=== PATIENT | male | born 1950 | race Caucasian/White ===

== ENCOUNTER 2018-07-08 05:32 | Inpatient (IN) | payer MEDICARE, OTHER ==
[~2018-07-08] VITALS: Ht 198.1 cm; Wt 155.1 kg
--- NOTE | 2018-07-08 05:50 | NUR ---
RT paged to bedside for SOB. RT states they will come back when there are orders. Dr. Azul called to bedside to evaluate patient for RT treatment and states he will place orders.
[2018-07-08] MEDS ORDERED: methylPREDNISolone sod succ 125mg/2ml vial IV ONE (06:00)
[2018-07-08] MEDS ORDERED: ipratropium/albuterol 3ml nebule NEB ONE (06:00)
[2018-07-08] MEDS ORDERED: albuterol 2.5 MG/3 ML nebule NEB ONE (06:00)
[2018-07-08 06:05] LABS: BASOPHILS % (AUTO) 0.6 % (0-1); EOSINOPHILS # (AUTO) 0.1 X10'3 (0-0.9); EOSINOPHILS % (AUTO) 0.7 % (0-6); HEMATOCRIT 41.1 % (42.0-52.0); HEMOGLOBIN 13.7 g/dl (14.0-17.9); LYMPHOCYTES # (AUTO) 1.1 X10'3 (1.1-4.8); LYMPHOCYTES % (AUTO) 12.8 % (21-51); MEAN CORPUSCULAR HEMOGLOBIN 27.9 PG (27.0-31.0); MEAN CORPUSCULAR HGB CONC 33.3 % (33.0-36.5); MEAN CORPUSCULAR VOLUME 83.9 FL (78-98); MEAN PLATELET VOLUME 6.7 FL (7.4-10.4); MONOCYTES # (AUTO) 0.6 X10'3 (0-0.9); MONOCYTES % (AUTO) 6.7 % (2-12); NEUTROPHILS # (AUTO) 6.7 X10'3 (1.8-7.7); NEUTROPHILS % (AUTO) 79.2 % (42-75); PLATELET COUNT 194 X10'3 (140-440); RED CELL DISTRIBUTION WIDTH 15.9 % (11.5-14.5); WHITE BLOOD COUNT 8.4 X10'3 (4.5-11.0)
--- NOTE | 2018-07-08 06:14 | NUR ---
RT REPAGED [phone]
[2018-07-08 06:24] LABS: PARTIAL THROMBOPLASTIN TIME 42 SECONDS (22-32); PROTHROMBIN TIME 19.6 SECONDS (9.0-12.0)
[2018-07-08 06:31] LABS: ALANINE AMINOTRANSFERASE 48 U/L (12-78); ALBUMIN 3.6 G/DL (3.4-5.0); ALBUMIN/GLOBULIN RATIO 1.1 (1.1-1.5); ALKALINE PHOSPHATASE 84 IU/L (46-116); ANION GAP 14 (8-16); ASPARTATE AMINO TRANSFERASE 108 U/L (10-37); BILIRUBIN,TOTAL 0.7 MG/DL (0.1-1.0); BLOOD UREA NITROGEN 26 MG/DL (7-18); BUN/CREATININE RATIO 16.9 (5.4-32.0); CALCIUM 8.7 MG/DL (8.5-10.1); CHLORIDE 100 MMOL/L (99-107); CREATININE 1.54 MG/DL (0.60-1.10); GLUCOSE 191 MG/DL (70-104); MAGNESIUM 1.8 MG/DL (1.5-2.4); SODIUM 142 MMOL/L (135-145); TOTAL CARBON DIOXIDE 28.1 MMOL/L (24-32); TOTAL PROTEIN 6.9 G/DL (6.4-8.2); eGFR 45 ML/MIN
--- NOTE | 2018-07-08 06:31 | NUR ---
THIRD PAGE FOR RT 0630; OCCURS REPORT STARTED PER DR. MAGDALENO.
[2018-07-08 06:39] LABS: POTASSIUM 2.8 MMOL/L (3.5-5.1)
--- NOTE | 2018-07-08 06:41 | NUR ---
RT ARRIVED 0640
[2018-07-08] MEDS ORDERED: levoFLOXACIN-Levaquin 750MG/D5 150 ML IV ONE (07:10)
--- NOTE | 2018-07-08 07:22 | NUR ---
HOSPITALIST PAGED [phone]
[2018-07-08] MEDS: potassium 10mEq/100ml NS w/LIDOcaine (10mg/bag) IV SCH ×2 (07:39→09:06)
--- NOTE | 2018-07-08 08:17 | NUR ---
HOSPITALIST CALLED [phone]
[2018-07-08] MEDS ORDERED: INSU100V30 SQ (08:37)
[2018-07-08] MEDS ORDERED: GABA-532 PO (08:37)
[2018-07-08] MEDS ORDERED: LANTUS SQ (08:37)
[2018-07-08] MEDS ORDERED: CHOL400T32 PO (08:47)
[2018-07-08] MEDS ORDERED: COU5T PO (08:47)
[2018-07-08] MEDS ORDERED: LOSA25TA96 PO (08:47)
[2018-07-08] MEDS ORDERED: FURO-150 PO (08:47)
[2018-07-08] MEDS ORDERED: ATOR80TA PO (08:47)
[2018-07-08] MEDS ORDERED: ASPI81TA52 PO (08:47)
[2018-07-08] MEDS ORDERED: TRAZ-218 PO (08:47)
[2018-07-08] MEDS ORDERED: DOCU-20 PO (08:47)
[2018-07-08] MEDS ORDERED: AMLO-93 PO (08:47)
[2018-07-08] MEDS ORDERED: ALFU10TA10 PO (08:47)
[2018-07-08] MEDS ORDERED: EPLE25TA4 PO (08:47)
[2018-07-08] MEDS ORDERED: glucagon, human recombinant 1mg kit SUBCUT PRN (09:00)
[2018-07-08] MEDS ORDERED: albuterol 2.5 MG/3 ML nebule NEB PRN (09:00)
[2018-07-08] MEDS ORDERED: acetaminophen 325mg tablet PO PRN ×2 (09:00)
[2018-07-08] MEDS ORDERED: magnesium 4gm in 100ml NS 100 ML IV PRN (09:00)
[2018-07-08] MEDS ORDERED: potassium Cl 20 mEq SR tablet PO PRN ×2 (09:00)
[2018-07-08] MEDS ORDERED: MESSAGE TO PHARMACY PO ONE (09:00)
[2018-07-08] MEDS ORDERED: magnesium Cl slow-release 64mg tablet PO PRN (09:00)
[2018-07-08] MEDS ORDERED: potassium Cl 40MEQ/NS 500ml 500 ML IV PRN ×2 (09:00)
[2018-07-08] MEDS ORDERED: dextrose 50%-water 50ml dispensing syringe IV PRN ×2 (09:00)
[2018-07-08] MEDS ORDERED: ondansetron/PF 4mg/2ml inj IV PRN (09:00)
[2018-07-08] MEDS ORDERED: mag hydrox/Alum hydrox/simeth 30ml oral suspension PO PRN (09:00)
[2018-07-08] MEDS ORDERED: HYDROcodone/acetaminophen 5mg/325mg tablet PO PRN (09:00)
[2018-07-08] MEDS ORDERED: dextrose ORAL solution 15 GM/59 ML bottle PO PRN ×2 (09:00)
[2018-07-08] MEDS ORDERED: magnesium hydroxide 30ml (MOM) UD suspension PO PRN (09:00)
[2018-07-08] MEDS: normal saline 1000ml 1,000 ML IV SCH ×2 (09:20→20:50)
[2018-07-08] MEDS: methylPREDNISolone sod succ 125mg/2ml vial IV SCH ×2 (13:04→20:38)
--- NOTE | 2018-07-08 15:51 | NUR ---
receiving report from Stoney HENRY
[2018-07-08 17:45] VITALS: BP 157/72
--- NOTE | 2018-07-08 18:48 | NUR ---
Received report from primary care nurse Silvia HENRY and student RN Lary. Assumed patient care. Patient is awake and alert on 3L NC. In no apparent distress watching television. Call light and items of frequent use within reach. Will continue to monitor for changes.
[2018-07-08 19:00] VITALS: BP 148/70
[2018-07-08] MEDS ORDERED: insulin glargine (Lantus) pen - multi-dose SQ SCH ×2 (20:00→21:00)
[2018-07-08] MEDS ORDERED: furosemide 20MG tablet PO SCH (20:00)
[2018-07-08] MEDS: EPLERENONE 50 MG PO SCH (20:35)
[2018-07-08] MEDS: gabapentin 300mg capsule PO SCH (20:36)
[2018-07-08] MEDS ORDERED: traZODone 50mg tablet PO SCH (21:00)
[2018-07-08] MEDS ORDERED: temazepam 15mg capsule PO PRN (21:00)
[2018-07-08] MEDS ORDERED: tamsulosin 0.4mg capsule PO SCH (21:00)
[2018-07-08] MEDS: insulin Lispro (HumaLOG) vial - multi-dose SQ SCH (21:54)
[2018-07-08] MEDS ORDERED: furosemide 10 MG/1 ML 10ml inj IV ONE (22:15)
[2018-07-08 23:00] VITALS: BP 106/73
[2018-07-09 03:00] VITALS: BP 161/72
[2018-07-09 06:00] VITALS: BP 153/84
--- NOTE | 2018-07-09 06:09 | NUR ---
Reported off to Mechelle RN and Renata RN. Patient is awake and alert on room air getting his labs drawn. In no apparent distress. Call light and items of frequent use within reach.
[2018-07-09 06:44] LABS: BASOPHILS % (AUTO) 0.1 % (0-1); EOSINOPHILS % (AUTO) 0.9 % (0-6); HEMATOCRIT 37.9 % (42.0-52.0); HEMOGLOBIN 12.5 g/dl (14.0-17.9); LYMPHOCYTES # (AUTO) 0.6 X10'3 (1.1-4.8); LYMPHOCYTES % (AUTO) 10.8 % (21-51); MEAN CORPUSCULAR HEMOGLOBIN 27.8 PG (27.0-31.0); MEAN CORPUSCULAR HGB CONC 33.1 % (33.0-36.5); MEAN CORPUSCULAR VOLUME 83.9 FL (78-98); MEAN PLATELET VOLUME 6.9 FL (7.4-10.4); MONOCYTES # (AUTO) 0.3 X10'3 (0-0.9); MONOCYTES % (AUTO) 5.6 % (2-12); NEUTROPHILS # (AUTO) 4.3 X10'3 (1.8-7.7); NEUTROPHILS % (AUTO) 82.6 % (42-75); PLATELET COUNT 179 X10'3 (140-440); RED BLOOD COUNT 4.52 X10'6 (4.70-6.10); RED CELL DISTRIBUTION WIDTH 16.4 % (11.5-14.5); WHITE BLOOD COUNT 5.3 X10'3 (4.5-11.0)
--- NOTE | 2018-07-09 06:47 | NUR ---
Patient in room PCU 3018B. I have received report from YE and had the opportunity to ask questions and assume patient care. PT AWAKE AND ORIENTED WITH NO SIGNS OF DISTRESS, WILL CONTINUE TO MONITOR. BED LOCKED AND LOW, CALL LIGHT WITHIN REACH.
[2018-07-09 07:11] LABS: PROTHROMBIN TIME 28.7 SECONDS (9.0-12.0)
--- NOTE | 2018-07-09 07:16 | NUR ---
Paged Dr. Phelps PAGER ID: [phone] MESSAGE: RAVI Phelps, Re: Mikel Cuellar in [id number]. Blood Glucose was 422 this am, raised him to level 3 per protocol. Pt has levaquin in D5W. please advise, Renata ext [phone]
[2018-07-09] MEDS: gabapentin 300mg capsule PO SCH (07:58)
[2018-07-09 08:00] LABS: ALBUMIN 3.4 G/DL (3.4-5.0); BLOOD UREA NITROGEN 33 MG/DL (7-18); BUN/CREATININE RATIO 21.2 (5.4-32.0); CALCIUM 8.4 MG/DL (8.5-10.1); CREATININE 1.56 MG/DL (0.60-1.10); GLUCOSE 422 MG/DL (70-104); MAGNESIUM 1.9 MG/DL (1.5-2.4); TOTAL CARBON DIOXIDE 28.9 MMOL/L (24-32); eGFR 44 ML/MIN
[2018-07-09] MEDS ORDERED: docusate sod 100mg capsule PO SCH (08:00)
[2018-07-09] MEDS ORDERED: enoxaparin 40mg/0.4ml syringe SUBCUT SCH (08:00)
[2018-07-09] MEDS ORDERED: vitamin D (cholecalciferol) 1,000 unit tablet PO SCH (08:00)
[2018-07-09] MEDS ORDERED: amLODIPine 5mg tablet PO SCH (08:00)
[2018-07-09] MEDS ORDERED: K and/or MAG REPLACEMENT MC SCH (08:00)
[2018-07-09] MEDS ORDERED: levoFLOXACIN-Levaquin 500mg/D5 100 ML IV SCH (08:00)
[2018-07-09] MEDS ORDERED: furosemide 40mg/4ml inj IV SCH (08:00)
[2018-07-09] MEDS ORDERED: atorvastatin 20mg tablet PO SCH (08:00)
[2018-07-09] MEDS ORDERED: lisinopril 20mg tablet PO SCH (08:00)
[2018-07-09] MEDS ORDERED: non-formulary drug (Amlodipine Besylate/Benazepril 5/40 MG* (Amlodipine-Benazepril 5/40 MG PO SCH (08:00)
[2018-07-09] MEDS ORDERED: losartan 25mg tablet PO SCH (08:00)
[2018-07-09] MEDS ORDERED: warfarin 2.5mg tablet PO SCH (08:00)
[2018-07-09] MEDS ORDERED: aspirin 81mg tablet.DR PO SCH (08:00)
[2018-07-09] MEDS: EPLERENONE 50 MG PO SCH (08:05)
[2018-07-09] MEDS: methylPREDNISolone sod succ 125mg/2ml vial IV SCH ×2 (08:07→13:03)
[2018-07-09] MEDS: insulin Lispro (HumaLOG) vial - multi-dose SQ SCH ×2 (09:03→13:01)
[2018-07-09 09:12] LABS: ANION GAP 12 (8-16); CHLORIDE 99 MMOL/L (99-107); POTASSIUM 3.5 MMOL/L (3.5-5.1); SODIUM 140 MMOL/L (135-145)
--- NOTE | 2018-07-09 09:25 | NUR ---
to Dr. Phelps, no changes made at this time, will inform RN if any changes to [facility] are made.
[2018-07-09] MEDS ORDERED: FURO-150 PO (10:26)
[2018-07-09 11:00] VITALS: BP 128/79
--- NOTE | 2018-07-09 11:17 | NUR ---
Paged Dr Phelps PAGER ID: [phone] MESSAGE: Lindsey Cuellar Sukhwinder [id number], @[phone], pts HR increased to 153, pt is symptomatic, HR is now 120's. O2 sats without O2 is 87. Pt now on 3L 94%. please advise, thanks shonda ext [phone]
--- NOTE | 2018-07-09 13:41 | NUR ---
orientee documentation: I have reviewed and agree with all interventions, assessments performed and documented by CARL Yanez.
--- NOTE | 2018-07-09 13:48 | NUR ---
PT WAS STABLE AND AMBULATORY. PT WAS GIVEN FLU VACCINE AND ALL MEDICATIONS PER PROVIDER ORDER BEFORE DISCHARGE. PT IV WAS REMOVED WITH CANNULA INTACT, ALL BELONGINGS WITH PT IN BAG AND LASIX PRESCRIPTION FILLED BY [facility]ITH BEDSIDE. PT WAS ACCOMPANIED BY SON FOR DISCHARGE TO THE FRONT PARKING LOT AND LEFT VIA PRIVATE VEHICLE. ALL PT TEACHING GIVEN ALONG WITH DISCHARGE PACKET, PT UNDERSTANDS THE IMPORTANCE OF FOLLOW UP WITH PCP IN ONE WEEK. ALL QUESTIONS AND CONCERNS WERE ANSWERED.
[2018-07-09] MEDS ORDERED: lactobacillus rhamnosus 10,000 MMU CELLS/CAPSULE PO SCH (20:00)
== END 2018-07-09 13:37 | disposition home or self-care (01) | DRG 291 ==
LOC: ER 05:33 → ED HOLD 09:00 → PCU 3S 16:30
PROVIDERS: ADMIT Hospitalist; ATTEND Internal Medicine
DX: I50.813 Acute on chronic right heart failure (principal); J96.01 Acute respiratory failure with hypoxia; J44.0 Chronic obstructive pulmonary disease with (acute) lower respiratory infection; E11.22 Type 2 diabetes mellitus with diabetic chronic kidney disease; E78.5 Hyperlipidemia, unspecified; E87.6 Hypokalemia; G47.30 Sleep apnea, unspecified; I48.0 Paroxysmal atrial fibrillation; J20.9 Acute bronchitis, unspecified; E66.01 Morbid (severe) obesity due to excess calories; E11.65 Type 2 diabetes mellitus with hyperglycemia; I27.81 Cor pulmonale (chronic); N18.3 Chronic kidney disease, stage 3 (moderate); N40.0 Benign prostatic hyperplasia without lower urinary tract symptoms; Z77.22 Contact with and (suspected) exposure to environmental tobacco smoke (acute) (chronic); Z23 Encounter for immunization; Z90.49 Acquired absence of other specified parts of digestive tract; Z99.81 Dependence on supplemental oxygen; Z79.899 Other long term (current) drug therapy; Z79.01 Long term (current) use of anticoagulants; Z79.4 Long term (current) use of insulin; Z79.82 Long term (current) use of aspirin; Z85.038 Personal history of other malignant neoplasm of large intestine; Z68.39 Body mass index [BMI] 39.0-39.9, adult
CPT/HCPCS: 36415; 71045; 80048; 80053; 82948; 83036; 83735; 83880; 84484; 85025; 85610; 85730; 87070; 93005; 93306; 94640; 94760; 96365; 96375; 99285; G0378; J1650; J1815; J1940; J1956; J2930; J3480; J7030